=== PATIENT | female | born 1995 | race Caucasian/White ===

== ENCOUNTER 2021-01-29 09:05 | Outpatient (CLI) | payer OTHER, SELFPAY ==
--- NOTE | 2021-01-30 12:06 | WPDHOLTEREM ---
Holter/Event Monitor Holter/Event Monitor Date of procedure: 01/29/21 Procedure Type: 24 hour holter monitor Indications: Hypotension/tachycardia Conclusion: 1. 24 hour holter monitor on 01/29/21. 2. Underlying rhythm is sinus rhythm. HR range 56-143 bpm; average HR 90 bpm. 3. No premature supraventricular complexes. No supraventricular tachycardia. 4. No premature ventricular complexes. No ventricular tachycardia. 5. No sinoatrial or atrioventricular blocks. No significant pauses greater than 2 seconds. 6. Patient reports symptom of nausea which demonstrate sinus tachycardia at 106 bpm.
== END 2021-01-29 09:06 | disposition home or self-care (01) ==
PROVIDERS: PCP Nurse Practitioner Family; Visit Provider Nurse Practitioner Family
DX: I95.9 Hypotension, unspecified (principal)
CPT/HCPCS: 93225; 93226

== ENCOUNTER 2021-03-01 18:50 | Emergency (ER) | payer OTHER, SELFPAY ==
--- NOTE | 2021-03-01 19:06 | ED.WOUNDLAC ---
HPI - Wound/Laceration General Chief Complaint: Wound/Laceration Stated Complaint: cut fingers Time Seen by Provider: 03/01/21 18:55 Source: patient and family Mode of arrival: ambulatory Limitations: no limitations History of Present Illness HPI narrative: Rodney comes in with her father after cutting up a watermelon, and cutting her index and middle finger on the left hand. She has had bleeding she felt was moderately severe and ongoing since the cut. She was not able to control the bleeding at home with holding the finger. Bleeding has been ongoing since the cut about 30 minutes ago. She has had no other associated signs, or symptoms. Onset (ago): minute(s) Location: other (fingers) Place: home Patient tetanus UTD: Yes Context: accidental Related Data Home Medications Medication Instructions Recorded Confirmed diphenhydramine HCl 25 mg capsule 25 mg PO ONCE PRN cap 01/25/21 metoclopramide HCl 10 mg tablet 10 mg PO DAILY PRN tablet 01/25/21 multivitamin 1 tablet PO DAILY 01/25/21 Allergies Allergy/AdvReac Type Severity Reaction Status Date / Time Penicillins Allergy Intermediate rash Verified 01/25/21 10:14 Sulfa (Sulfonamide Allergy Intermediate Rash Verified 01/25/21 10:14 Antibiotics) Review of Systems Constitutional: Constitutional: Reports no additional constitutional complaints Eyes: Eyes: Reports no additional eye complaints ENT: Reports system reviewed and no additional complaints, except as documented Cardiovascular: Cardiovascular: Reports no additional cardiovascular complaints Respiratory: Respiratory: Reports no additional respiratory complaints Gastrointestinal: Gastrointestinal: Reports no additional gastrointestinal complaints Genitourinary: Genitourinary: Reports no additional female genitourinary complaints Musculoskeletal: Musculoskeletal: Reports no additional musculoskeletal complaints Neurologic: Reports system reviewed and no additional complaints, except as documented Psychiatric: Psychiatric: Reports no additional psychiatric complaints Endocrine: Endocrine: Reports no additional endocrine complaints Hematologic/Lymphatic: Hematologic/Lymphatic: Reports no additional hematologic/lymphatic complaints Allergic/Immunologic: Allergic/Immunologic: Reports no additional allergic/immunologic complaints [facility] Past Medical History Medical History (Updated 03/01/21 @ 19:32 by Christopher Duff MD) No significant medical problems Surgical History Surgical History (Updated 01/25/21 @ 10:16 by Alis Holloway MA) H/O: section Family History Family History (Updated 03/01/21 @ 19:32 by Christopher Duff MD) Other No significant family history Social History Social History (Updated 01/25/21 @ 10:17 by Alis Holloway MA) Smoking status: Never smoker Alcohol intake: never Substance use: never Substance use type: does not use Additional living arrangements comments: Lives with Fianc? and 2 sons Additional occupation/education comments: Stay at home mom Gender identity (if verbalized by the patient): Female Exam Const: General: no acute distress and alert Orientation/consciousness: patient oriented x3 HENMT: Head: normal to inspection Eyes: Conjunctivae: conjunctivae normal Neck: Neck: normal visual inspection Chest: Chest palpation & inspection: normal inspection of the chest Resp: Effort & Inspection: normal respiratory effort Auscultation: clear to auscultation bilaterally Cardio: Rate: regular rate Rhythm: regular rhythm GI: GI Palp: Yes Soft to palpation (nontender) Back/Spine/Pelvis: Back: no CVA tenderness Skin: General skin exam: normal color Neuro: General: patient oriented x3 Extrem: Other: lacerations to index and middle finger on left hand. Laceration to middle finger on left (3rd finger) is superficial and was closed with Durabond skin adhesive, with good closure. Laceration to index fi
[2021-03-01 19:15] VITALS: BP 107/81; PULSE 88; RESP 16; TEMP 36.6; O2SAT 98
--- NOTE | 2021-03-01 19:20 | PC.NURSE ---
area cleaned with betadine, shilpa fingers finger tips vineet well surgicel applied to index finger & petrolatum dressing dermabond to middle finger
[2021-03-01 19:23] VITALS: BP 102/77; PULSE 88; RESP 16; TEMP 36.4; O2SAT 99
[2021-03-01] MEDS: CELLULOSE OXIDIZED 2 x 3 INCH 1 PKT XX (19:27)
== END 2021-03-01 19:26 | disposition home or self-care (01) ==
PROVIDERS: Emergency Provider Emergency Medicine; PCP Nurse Practitioner Family
DX: S61.211A Laceration without foreign body of left index finger without damage to nail, initial encounter (principal); S61.213A Laceration without foreign body of left middle finger without damage to nail, initial encounter; W26.0XXA Contact with knife, initial encounter; Y93.G1 Activity, food preparation and clean up
CPT/HCPCS: 12001; 99282

== ENCOUNTER 2021-05-14 08:16 | Outpatient (CLI) | payer OTHER, SELFPAY ==
[2021-05-14 10:29] LABS: SARS-CoV-2 RNA PCR Negative (Negative)
== END 2021-05-14 08:17 | disposition home or self-care (01) ==
PROVIDERS: Visit Provider Family Medicine
DX: Z01.818 Encounter for other preprocedural examination (principal); Z20.822 Contact with and (suspected) exposure to COVID-19
CPT/HCPCS: C9803; U0003; U0005

== ENCOUNTER 2021-05-29 09:24 | Outpatient (CLI) | payer OTHER, SELFPAY ==
--- NOTE | ~2021-05-29 | US_ITS ---
EXAMINATION: US soft tissue abdomen DATE: 05/29/2021 09:42 INDICATION: Infection near section scar. TECHNIQUE: Multiple grayscale and Doppler ultrasound images of the abdomen were obtained. COMPARISON: None FINDINGS: At the section scar, there is a 1.5 x 0.6 x 1.1 cm subcutaneous fluid collection. IMPRESSION: 1. 1.5 x 0.6 x 1.1 cm subcutaneous fluid collection at the section scar, which may be a ser césar, chronic hematoma, or abscess. Reviewed, dictated and finalized at location A. IMPRESSION: 1. 1.5 x 0.6 x 1.1 cm subcutaneous fluid collection at the section sc ar, which may be a seroma, chronic hematoma, or abscess.
== END 2021-05-29 09:25 | disposition home or self-care (01) ==
LOC: CHSIMG 09:25
PROVIDERS: PCP Nurse Practitioner Family; Visit Provider Nurse Practitioner Family
DX: O90.0 Disruption of cesarean delivery wound (principal)
CPT/HCPCS: 76705

== ENCOUNTER 2021-08-28 16:10 | Emergency (ER) | payer OTHER, SELFPAY ==
--- NOTE | ~2021-08-28 | CT_ITS ---
EXAMINATION: CT abdomen pelvis w con INDICATION: Right lower quadrant pain TECHNIQUE: Computed tomographic images of the abdomen and pelvis were obtained after the administrati on of 100 cc of Omnipaque 350 intravenous contrast. The dose-length product (DLP) was 224.34 mGy-cm. Automated exposure control and iterative reconstruction technique were employed. COMPARISON: None available FINDINGS: The lung bases are clear. The heart size is normal. The liver, spleen, pancreas, gallbladde r, and adrenal glands are normal. The kidneys are unremarkable. No pathologically enlarged abdominal or pelvic lymph nodes are identified. There is no free intraperitoneal gas or evidence of bowel obstr uction. The dilated appendix measures up to 9 mm. There is no periappendiceal abscess or perforation. Scarring is noted in the lower abdominal wall at the site of prior section. The visualized osseous structures are unremarkable. IMPRESSION: 1. Findings consistent with early acute appendicitis. These findings were discussed with Dr. Christopher Arreola MD in the Emergency Department at 1803 hours on 08/28/2021. Reviewed, dictated and finalized at location F. HANDISE EXAMINER IMPRESSION: 1. Findings consistent with early acute appendicitis. These findings were discu ssed with Dr. Christopher Arreola MD in the Emergency Department at 1803 hours on .
--- NOTE | 2021-08-28 16:16 | ED.ABDPAIN ---
HPI - Abdominal Pain General Chief Complaint: Abdominal Pain Stated Complaint: sent by doc to check appendix Source: patient and RN notes reviewed Mode of arrival: ambulatory Limitations: no limitations History of Present Illness MD elicited complaint: abdominal pain Pain Consistency: intermittent Location: RLQ Related Data Home Medications Medication Instructions Recorded Confirmed multivitamin 1 tablet PO DAILY 01/25/21 Allergies Allergy/AdvReac Type Severity Reaction Status Date / Time Penicillins Allergy Intermediate rash Verified 05/28/21 08:54 Sulfa (Sulfonamide Allergy Intermediate Rash Verified 05/28/21 08:54 Antibiotics) ketorolac [From Toradol] AdvReac Mild bradycardia Verified 05/28/21 11:02 PMFSH Past Medical History Medical History No significant medical problems Surgical History Surgical History (Updated 08/28/21 @ 16:44 by Christopher Arreola MD) H/O: section Times 3 Family History Family History Other No significant family history Social History Social History Smoking status: Never smoker Alcohol intake: never Substance use: never Substance use type: does not use Additional living arrangements comments: Lives with Fianc? and 2 sons Additional occupation/education comments: Stay at home mom Gender identity (if verbalized by the patient): Female Exam Const: General: healthy appearing, no acute distress and alert Nutritional Appearance: well nourished and thin Orientation/consciousness: patient oriented x3 HENMT: Head: normal to inspection Ears: external ears normal Eyes: Conjunctivae: conjunctivae normal Pupils: Equal, round and reactive pupils present EOM: EOMs intact bilaterally Neck: Neck: normal visual inspection Resp: Effort & Inspection: normal respiratory effort Auscultation: clear to auscultation bilaterally Cardio: Rate: regular rate Rhythm: regular rhythm GI: GI Palp: Yes Soft to palpation, Yes Tenderness to palpation present (GI) ( moderate RLQ), Yes Guarding due to palpation present (GI) ( Moderate RLQ) and Yes Rebound tenderness present (RLQ) Auscultation: normal bowel sounds Back/Spine/Pelvis: Cervical Spine: cervical ROM normal Thoracic/Lumbar Spine: thoraco-lumbar ROM normal Skin: General skin exam: normal color Rashes: no rashes Neuro: General: patient oriented x3, moves all extremities, no meningeal signs, no focal motor deficits and CN's II-XI intact bilaterally Speech: normal speech Gait exam (Neuro): Normal gait present Extrem: General: normal to inspection and no clubbing, cyanosis or edema Psych: Appearance: grossly normal and well kempt Mental Status: mental status grossly normal Affect: normal affect Attitude: cooperative Thought content: Yes Normal thought content present Discharge Plan Discharge Prescriptions: No Action multivitamin Tablet 1 tablet PO DAILY RF: 0
[2021-08-28 17:02] LABS: Basophils Absolute Auto 0.01 K/mm3 (0.00-0.10); Basophils Percent Auto 0.2 % (0.0-1.0); Eosinophils Absolute Auto 0.02 K/mm3 (0.02-0.50); Eosinophils Percent Auto 0.4 % (1.0-6.0); Hematocrit 38.7 % (35.0-49.0); Hemoglobin 12.6 g/dL (12.0-15.0); Immature Granulocyte Absolute 0.01 K/mm3 (0.00-0.00); Immature Granulocyte Percent A 0.2 % (0.0-0.0); Lymphocytes Absolute Auto 1.57 K/mm3 (1.10-4.50); Lymphocytes Percent Auto 34.7 % (18.0-42.0); Mean Corpuscular HGB Conc 32.6 g/dL (32.0-36.0); Mean Corpuscular Hemoglobin 27.6 pg (27.0-31.0); Mean Corpuscular Volume 84.7 fL (78.0-102.0); Mean Platelet Volume 10.7 fl (9.2-11.8); Monocytes Absolute Auto 0.22 K/mm3 (0.10-0.90); Monocytes Percent Auto 4.9 % (2.0-11.0); Neutrophils Absolute Auto 2.7 K/mm3 (1.7-7.2); Neutrophils Percent Auto 59.6 % (50.0-70.0); Platelet Count Result 178 K/mm3 (150-420); Red Blood Count 4.57 M/mm3 (4.20-5.40); Red Cell Distribution Width 13.2 % (11.6-14.4); White Blood Count 4.5 K/mm3 (4.8-10.8)
[2021-08-28 17:04] VITALS: BP 117/80; PULSE 94; RESP 20; TEMP 36.3; O2SAT 98
[2021-08-28 17:07] LABS: Pregnancy On Board Control Positive; Urine Pregnancy Test Negative
[2021-08-28 17:12] LABS: Appearance Urine Clear (Clear); Bilirubin Urine Negative (Negative); Color Urine Light Yellow (Yellow); Glucose Urine UA Negative (Negative); Ketones Urine 1+ (Negative); Leukocyte Esterase Ur Negative LEU/UL (Negative); Nitrate Urine Negative (Negative); Protein Urine Negative (Negative); Specific Grav Ur >= 1.030 (1.010-1.020); Urobilinogen Urine 0.2 mg/dL (0.2-1.0); pH Urine 5.5 (5.0-8.0)
[2021-08-28 17:16] LABS: Alanine Aminotransferase 45 U/L (14-59); Albumin Level 4.1 g/dL (3.4-5.0); Alkaline Phosphatase 56 U/L (46-116); Anion Gap 14 mmol/L (8-16); Aspartate Amino Transferase 22 U/L (15-37); Bilirubin,Total 0.3 mg/dL (0.00-1.00); Blood Urea Nitrogen 21 mg/dL (7-18); Calcium 9.1 mg/dL (8.5-10.1); Carbon Dioxide 23 mmol/L (21-32); Chloride 103 mmol/L (98-108); Estimated Glomerular Filt Rate > 60; Glucose 92 mg/dL (70-99); Lipase 110 U/L (73-393); Osmolality Calculated 293 mOsm/kg (285-295); Potassium 3.6 mmol/L (3.5-5.1); Sodium 140 mmol/L (136-145); Total Protein 7.6 g/dL (6.4-8.2)
[2021-08-28 17:33] LABS: CRP 2.7 mg/dL (0.0-0.9)
[2021-08-28 17:38] LABS: Add Urine Microscopic? YES; Bacteria Urine None seen /hpf; Blood Urine Trace-Intact (Negative); RBC Urine 0-2 /hpf (0-2); Squamous Epithelial Cell Urine Few /hpf (Few); WBC Urine 0-3 /hpf (0-3)
[2021-08-28 17:39] LABS: Mucus Urine Rare /lpf
[2021-08-28 18:54] LABS: SARS-CoV-2 RNA PCR Negative (Negative)
[2021-08-28 19:03] VITALS: BP 107/76; PULSE 71; RESP 20; TEMP 36.7; O2SAT 98
[2021-08-28 20:29] VITALS: BP 107/76; PULSE 71; RESP 18; TEMP 36.7; O2SAT 98
== END 2021-08-28 19:00 | disposition short-term general hospital (02) ==
LOC: CHSED 16:12
PROVIDERS: Emergency Provider Emergency Medicine; PCP Nurse Practitioner Family
DX: K35.80 Unspecified acute appendicitis (principal); Z20.822 Contact with and (suspected) exposure to COVID-19
CPT/HCPCS: 36415; 74177; 80053; 81001; 81025; 83690; 85025; 86140; 99283; 99285; C9803; Q9967; U0003; U0005

== ENCOUNTER 2021-08-28 20:43 | Observation (INO) | payer OTHER, SELFPAY ==
[2021-08-28 20:50] VITALS: BMI 25.4
[2021-08-28 21:00] VITALS: PULSE 72; RESP 14; O2SAT 99
[2021-08-28 21:44] VITALS: BP 113/70; PULSE 72; RESP 14; TEMP 37.3; O2SAT 99
[2021-08-28] MEDS: SODIUM CHLORIDE 0.9% IV 1,000 ML 100 ML IV CONT (22:15)
[2021-08-28] MEDS: MORPHINE SULFATE (*CRX) 2 MG/ML INJ 1 MG IV PUSH (22:50)
[2021-08-29] VITALS (7 sets, daily range): BP systolic 99–118; BP diastolic 60–70; PULSE 56–103; RESP 10–16; TEMP 36.2–36.5; O2SAT 97–100
[2021-08-29] MEDS: MORPHINE SULFATE (*CRX) 2 MG/ML INJ 1 MG IV PUSH (04:31)
[2021-08-29] MEDS: MORPHINE SULFATE (*CRX) 2 MG/ML INJ IV PUSH (06:25)
--- NOTE | 2021-08-29 06:59 | P.PNAN_ITS ---
Anes - Initial Pre Proc Eval Procedure: Operation Date: 08/29/21 07:30 Proposed Procedures p Laparoscopic Appendectomy - Camryn San MD Date/Time: 08/29/21 06:59 Surgeon: Camryn San MD Pre Op Diagnosis: Acute Appendicitis Patient Data Age: 26 Gender: F Height: 1.5 m Weight: 57.27 kg Last Vital Signs Temp 36.5 C 08/29/21 06:11 Pulse 63 08/29/21 06:11 Resp 16 08/29/21 06:11 BP 113/64 08/29/21 06:11 Pulse Ox 99 08/28/21 21:44 Allergies Allergy/AdvReac Type Severity Reaction Status Date / Time Penicillins Allergy Intermediate rash Verified 08/28/21 18:33 Sulfa (Sulfonamide Allergy Intermediate Rash Verified 08/28/21 18:33 Antibiotics) ketorolac [From Toradol] AdvReac Mild bradycardia Verified 08/28/21 18:33 Home Medications Medication Instructions Recorded Confirmed Type multivitamin 1 tablet PO DAILY 01/25/21 08/29/21 History Patient hx anesthesia problems: none Family hx anesthesia problems: none Results Review: All pre-operative results and documents have been reviewed as part of the pre-operative evaluation. [facility] Past Medical History Medical History No significant medical problems Surgical History Surgical History H/O: section Times 3 Family History Family History Grandparent Colon cancer Social History Social History Smoking status: Never smoker Alcohol intake: current Drinks per week: 3 Substance use: never Substance use type: does not use Additional living arrangements comments: Lives with Fianc? and 2 sons Additional occupation/education comments: Stay at home mom Gender identity (if verbalized by the patient): Female Spiritual care concerns: No Anes - Eval Final PreProcedure Day of Procedure 08/29/21 06:59 Patient weight: normal Heart: regular rate and rhythm Lungs: clear to auscultation Airway: Mallampati scale class II Neurological: alert and oriented Last oral intake: >/= 8 hours ASA classification: II Emergent: no Anesthetic plan: proceed Anesthesia type and monitoring: general ETT and standard monitoring Results Review: All pre-operative results and documents have been reviewed as part of the pre-operative evaluation. Informed Consent: The patient's anesthetic plan and its attendant risks and benefits were discussed with the patient/family/POA. Questions were solicited and answers provided to the satisfaction of the patient/family/POA.
[2021-08-29] MEDS: LACTATED RINGERS 1,000 ML 30 ML IV CONT ×2 (07:00→09:34)
--- NOTE | 2021-08-29 07:45 | PM.IMHP ---
H&P: HPI History of Present Illness Date/Time: 08/29/21 07:45 The pt is a 26 y/o F presenting to ED last night c/o RLQ abd pain. Pt reports pain started at midnight and progressively worsened. Pt reports pain is localized to RLQ. Pt reports some nausea and decreased appetite. Pt denies any previous episodes. Chief Complaint: acute appendicitis Review of Systems Constitutional: Constitutional: Denies anorexia, Denies chills, Denies fatigue, Denies fever(s), Denies lethargy, Denies malaise, Denies night sweats, Reports poor appetite, Denies weakness, Denies weight gain and Denies weight loss Eyes: Eyes: Reports no additional eye complaints ENT: Reports system reviewed and no additional complaints, except as documented Cardiovascular: Cardiovascular: Reports no additional cardiovascular complaints Respiratory: Respiratory: Reports no additional respiratory complaints Gastrointestinal: Gastrointestinal: Reports as per HPI, Reports abdominal pain, Denies belching, Reports bloating, Denies constipation, Denies GI cramping, Denies loose stools, Reports nausea and Denies vomiting Genitourinary: Genitourinary: Reports no additional female genitourinary complaints Musculoskeletal: Musculoskeletal: Reports no additional musculoskeletal complaints Integumentary/Breasts: Skin/Breast: Reports system reviewed and no additional complaints, except as docu Neurologic: Reports system reviewed and no additional complaints, except as documented Psychiatric: Psychiatric: Reports no additional psychiatric complaints Endocrine: Endocrine: Reports no additional endocrine complaints Hematologic/Lymphatic: Hematologic/Lymphatic: Reports no additional hematologic/lymphatic complaints Allergic/Immunologic: Allergic/Immunologic: Reports no additional allergic/immunologic complaints [facility] Past Medical History Medical History No significant medical problems Surgical History Surgical History H/O: section Times 3 Family History Family History Grandparent Colon cancer Social History Social History Smoking status: Never smoker Alcohol intake: current Drinks per week: 3 Substance use: never Substance use type: does not use Additional living arrangements comments: Lives with Fianc? and 2 sons Additional occupation/education comments: Stay at home mom Gender identity (if verbalized by the patient): Female Spiritual care concerns: No Meds Home Medications and Allergies Home Medications Medication Instructions Recorded Confirmed Type multivitamin 1 tablet PO DAILY 01/25/21 08/29/21 History Allergies Allergy/AdvReac Type Severity Reaction Status Date / Time Penicillins Allergy Intermediate rash Verified 08/28/21 18:33 Sulfa (Sulfonamide Allergy Intermediate Rash Verified 08/28/21 18:33 Antibiotics) ketorolac [From Toradol] AdvReac Mild bradycardia Verified 08/28/21 18:33 Vital Signs Vital Signs - 24 hr 08/28/21 21:00 08/28/21 21:44 08/29/21 06:11 Temperature 37.3 C 36.5 C Pulse Rate 72 72 63 Respiratory Rate 14 14 16 Blood Pressure 113/70 113/64 Pulse Oximetry 99 99 08/29/21 07:10 Temperature 36.5 C Pulse Rate 71 Respiratory Rate 16 Blood Pressure 118/64 Pulse Oximetry 100 Exam Const: General: cooperative, healthy appearing, alert, awake, Physically active and acute distress mild Nutritional Appearance: average body habitus Orientation/consciousness: patient oriented x3 Limitations: no limitations HENMT: Head: normal to inspection, normocephalic and atraumatic Ears: hearing grossly normal bilaterally General nose exam: Normal external nose present Face and sinus: normal facial exam Mouth: Yes Normal oral and palatal mucosa present and Yes moist mucou
--- NOTE | 2021-08-29 07:50 | WPDHPUPDATE1 ---
History and Physical Update Update Date/Time: 08/29/21 07:50 History and Physical has been reviewed, including an updated exam of the patient. There are NO changes in the patient's condition. Risks, benefits, and alternatives have been discussed and questions answered. Patient agrees to proceed with procedure.
[2021-08-29] MEDS: BUPIVACAINE/EPINEPHRINE 0.5% 10 ML VIAL 30 ML INFILTRATE (08:03)
--- NOTE | 2021-08-29 08:34 | P.OP_ITS ---
Procedure Note - Detailed Date of Procedure 08/29/21 Pre-op Diagnosis Acute Appendicitis Post-op Diagnosis same Procedure Performed laparoscopic appendectomy Surgeon Camryn San MD Anesthesia general Indications 26 y/o F c acute appendicitis Findings acute appendicitis no evidence of perforation Description of Procedure The patient was taken to the operating room and placed in the supine position. After adequate induction of general anesthesia, the patient was prepped and draped in the normal sterile fashion. A time-out was then done to verify the patient's identity, as well as the procedure being performed. I began by making a 5 mm incision in the infraumbilical region, through this a Veress needle was placed in the peritoneal cavity. CO2 gas was then insufflated and after adequate pneumoperitoneum was achieved the Veress needle was removed. Then placed a 5 mm Optiview trocar under direct visualization into the peritoneal cavity. I then insufflated through this trocar site and the endoscope was placed into the trocar. Under direct visualization, placed 2 further 5 mm suprapubic port as well as an additional 12 mm port in the left lower abdomen. At this point identified the cecum, I retracted the cecum both medially and superiorly allowing me to expose the appendix. The appendix was noted to be dilated and inflamed. I was able to locate the base of the appendix with the cecum. I created a window with the [place] dissector between the appendix itself and the mesoappendix. I then transected the mesoappendix with a white vascular staple load. The Endo-EVERETT was then reloaded with a blue staple load and I transected the base of the appendix. Once the specimen was completely detached, an endo-pouch was placed into the 12 mm port site and the specimen was removed through the endo-pouch. The appendiceal specimen will be sent to pathology for further review. I then copiously irrigated the right lower quadrant. Hemostasis was noted at both staple lines no other pathology was seen in this area. I then moved the camera to the suprapubic port to check our its port of entry. No iatrogenic injury or other pathology was noted in the upper abdomen. I then closed the 12 mm port site with a Chi code and 0 Vicryl suture under direct visualization. At this point, the abdomen was desufflated and all ports were removed. All port sites were closed with 4 Monocryl s ubcuticular suture. Dermabond was placed on all wounds. The patient tolerated the procedure well and was extubated in the operating room postop. He will be sent to the recovery room in stable condition. Estimated Blood Loss 5 Drains No Packing No Pathology yes Complications No immediate complications Condition stable Disposition PACU
[2021-08-29] MEDS: fentaNYL CITRATE INJ (*CRX) 100 MCG/2 ML VIAL 25 MCG IV PUSH ×4 (09:09→09:25)
[2021-08-29] MEDS: ONDANSETRON INJ 4 MG/2 ML VIAL IV PUSH (09:57)
[2021-08-29] MEDS: diphenhydrAMINE HCl INJ 50 MG/ML VIAL IV PUSH (12:34)
--- NOTE | 2021-09-02 13:06 | PM.DS ---
DS: Admitting Diagnosis Discharge Date 08/29/21 Admitting Diagnosis Acute appendicitis DS: Discharge Diagnosis Discharge Diagnosis (1) Acute appendicitis: Code(s): K35.80 - Unspecified acute appendicitis Status: Acute Assessment and Plan: status post lap appy, routine postoperative care, with p.o. analgesia and Colace, follow-up 2 weeks DS: Summary Hospital Course Reason for hospitalization: acute appendicitis Hospital Course: The patient is a 26-year-old female presenting to the hospital with acute appendicitis. The patient was actually seen in outside facility and subsequent workup, including imaging, was significant for acute appendicitis. The patient was subsequently admitted to our hospital and upon evaluation it was decided to proceed with urgent appendectomy. The patient was taken to the operating and urgent appendectomy was performed. Please see full operative report for details of that procedure. Postoperatively, the patient did well and was transferred back to her room. A few hours after the surgery, the patient was tolerating a clear liquid diet and was up and ambulating without difficulty. The patient's pain was well controlled with p.o. analgesia. She will be discharged home with routine postoperative care instructions, as well as p.o. analgesia. She will follow-up with me in 2 weeks. Status at Discharge Functional status at discharge: independent ambulation Overall status at discharge: patient is progressing back to baseline Time Spent with Patient Time attestation: Total time spent providing and/or coordinating discharge services: Time spent: Less than 30 minutes Exam Const: General: cooperative, comfortable and no acute distress Resp: Auscultation: clear to auscultation bilaterally Cardio: Rate: regular rate Rhythm: regular rhythm GI: Inspection: normal to inspection, distended and incision GI Palp: Yes Soft to palpation, Yes Tenderness to palpation present (GI), No Guarding due to palpation present (GI) and No Rigid due to palpation DS: Data Data Completed and Pending Completed studies during hospitalization: Pending at discharge 08/29/21 07:07 Surgical [PTH] Routine Discharge Plan Discharge Attending physician on discharge: Camryn San Discharging Clinician: Camryn San Anticipated Discharge Date/Time: 08/29/21 11:30 Patient Disposition: Home, Self-Care Activity: other - see discharge instructions Diet: as tolerated Wound Care Instructions: incision open to air Discharge Instructions: DISCHARGE INSTRUCTION SHEET FOR HERNIA, GALLBLADDER AND APPENDIX SURGERIES DR. SAN PATIENT TO TAKE HOME 1. May shower in 24 hours, no soaking in bath x 2weeks. 2. Call office for: Wound increasingly painful or bleeding Vomiting Fever of greater than 101 degrees 3. If no bowel movement for three days, take 1 oz. (30 ml) Milk of Magnesia or MiraLax 17g 1 to 2 times daily. 4. No heavy lifting > 10-15 pounds x 6 weeks for hernia repairs and 2 weeks for laparoscopic cholecystectomy or appendectomy. 5. No driving for 3 days or while taking narcotic pain medications. 6. Ice to surgical site for 48 hours (30 min on, then 30 min off). 7. Up walking 10-30 minutes three times per day. 8. Resume previous home medications. 9. Follow-up 10-14 days in office for wound check or as previously scheduled. ([id number]) 10. Oral pain medications prescription to be sent to pharmacy. Take Tylenol 500mg every 6 hours and Ibuprofen 600mg every 6 hours for the first 2 days, then as needed. 11. NUTRITION: Start out by drinking fluids and increase your diet as tolerated. If you experience nausea, try dry toast, crackers, and 7-UP. If nausea or vomiting persists, contact your surgeon?s office. 12. Gallbladders-Low Fat Diet for 2 weeks (send care note of low fat diet) 13. Inguinal Hernias-wea
== END 2021-08-29 16:30 | disposition home or self-care (01) ==
PROVIDERS: Admitting Provider Surgery; PCP Nurse Practitioner Family; Visit Provider Surgery
PROC: 0DTJ4ZZ Resection of Appendix, Percutaneous Endoscopic Approach (ICD-10-PCS; CPT 44970; principal; 2021-08-29 07:30)
DX: K35.30 Acute appendicitis with localized peritonitis, without perforation or gangrene (principal)
CPT/HCPCS: 44970; 88304; 96361; 96365; 96375; 96376; A9270; G0378; G0379; J0131; J1100; J1170; J1200; J2250; J2270; J2405; J2543; J2704; J2710; J3010; J7030; J7120

== ENCOUNTER 2022-01-27 13:38 | Outpatient (CLI) | payer OTHER, SELFPAY ==
[2022-01-27 14:43] LABS: SARS-CoV-2 RNA PCR Negative (Negative)
== END 2022-01-27 13:39 | disposition home or self-care (01) ==
LOC: CHSLAB 13:41
PROVIDERS: PCP Nurse Practitioner Family; Visit Provider Nurse Practitioner Family
DX: Z20.822 Contact with and (suspected) exposure to COVID-19 (principal)
CPT/HCPCS: C9803; U0003; U0005

== ENCOUNTER 2022-05-05 08:03 | Outpatient (CLI) | payer OTHER, SELFPAY ==
--- NOTE | ~2022-05-05 | US_ITS ---
EXAMINATION: US breast RT complete HISTORY: Right breast pain TECHNIQUE: Complete right breast ultrasound is performed including all four quadrants and the subareo lar breast FINDINGS: No sonographic correlate is identified for the patient's right breast pain. No cystic or so lid mass is identified. Normal fibroglandular tissue is seen. IMPRESSION: No specific sonographic correlate is identified for the patient's reported breast pain. Further evalu ation at this time should be based on clinical assessment. Continued follow-up physical examination i s recommended. BI-RADS Category 1: Negative Reviewed, dictated and finalized at location A. IMPRESSION: No specific sonographic correlate is identified for the patient's reported jaqueline st pain. Further evaluation at this time should be based on clinical assessment . Continued follow-up physical examination is recommended. BI-RADS Category 1: Negative
[2022-05-05 09:07] LABS: Basophils Absolute Auto 0.01 K/mm3 (0.00-0.10); Basophils Percent Auto 0.2 % (0.0-1.0); Eosinophils Absolute Auto 0.07 K/mm3 (0.02-0.50); Eosinophils Percent Auto 1.7 % (1.0-6.0); Hematocrit 38.7 % (35.0-49.0); Hemoglobin 12.4 g/dL (12.0-15.0); Immature Granulocyte Absolute 0.02 K/mm3 (0.00-0.00); Immature Granulocyte Percent A 0.5 % (0.0-0.0); Lymphocytes Absolute Auto 1.47 K/mm3 (1.10-4.50); Lymphocytes Percent Auto 36.1 % (18.0-42.0); Mean Corpuscular Hemoglobin 27.9 pg (27.0-31.0); Mean Corpuscular Volume 87.2 fL (78.0-102.0); Mean Platelet Volume 11.4 fl (9.2-11.8); Monocytes Absolute Auto 0.23 K/mm3 (0.10-0.90); Monocytes Percent Auto 5.7 % (2.0-11.0); Neutrophils Absolute Auto 2.3 K/mm3 (1.7-7.2); Neutrophils Percent Auto 55.8 % (50.0-70.0); Platelet Count Result 163 K/mm3 (150-420); Red Blood Count 4.44 M/mm3 (4.20-5.40); Red Cell Distribution Width 13.1 % (11.6-14.4); White Blood Count 4.1 K/mm3 (4.8-10.8)
[2022-05-05 10:06] LABS: Alanine Aminotransferase 18 U/L (14-59); Albumin Level 4.2 g/dL (3.4-5.0); Alkaline Phosphatase 48 U/L (46-116); Anion Gap 6 mmol/L (8-16); Aspartate Amino Transferase 17 U/L (15-37); Bilirubin,Total 0.5 mg/dL (0.00-1.00); Blood Urea Nitrogen 16 mg/dL (7-18); Calcium 8.8 mg/dL (8.5-10.1); Carbon Dioxide 27 mmol/L (21-32); Chloride 104 mmol/L (98-108); Estimated Glomerular Filt Rate > 60; Free T4 Free Thyroxine 0.88 ng/dL (0.76-1.46); Glucose 90 mg/dL (70-99); Iron 59 ug/dL (50-170); Osmolality Calculated 285 mOsm/kg (285-295); Sodium 137 mmol/L (136-145); Thyroid Stimulating Hormone 1.29 uIU/mL (0.36-3.74); Total Protein 7.1 g/dL (6.4-8.2)
== END 2022-05-05 08:04 | disposition home or self-care (01) ==
PROVIDERS: PCP Nurse Practitioner Family; Visit Provider Nurse Practitioner Family
DX: N64.4 Mastodynia (principal); N63.10 Unspecified lump in the right breast, unspecified quadrant; R53.83 Other fatigue; D64.9 Anemia, unspecified
CPT/HCPCS: 36415; 76641; 80053; 83540; 84439; 84443; 85025